=== PATIENT | female | born 1995 | race Caucasian/White ===

== ENCOUNTER 2021-01-04 09:40 | Day surgery (SDC) | payer OTHER ==
[~2021-01-04] VITALS: Ht 172.7 cm; Wt 90.9 kg
[2021-01-04] MEDS ORDERED: KYLE19.5 IU (09:45)
--- OUTSIDE RECORDS SUMMARY | 2021-01-04 11:28 | CCD | Continuity of Care Document ---
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 Name Role Phone [facility] AUTM [phone] Problems Description No Information Available Social History Type Date Description Comments Sex Unknown Allergies and adverse reactions Description No Information Available Medications Description No Information Available Immunizations Description No Information Available Vital Signs Description No Information Available Results Description No Information Available Procedures Description No Information Available Medical Devices Description No Information Available Encounters Description No Information Available Assessments Date Code Description Provider 01/03/2021 Z20.828 Contact with and (goodson spected) exposure to other viral communicable diseases SHANNAN Blake Plan of Treatment No Information Available Functional Status Description No Information Available Mental Status Description No Information Available Referrals Refer to Reason for Referral Status Appt Date Wallace Link PA Created [facility] [address] [place] [id number] [phone]
--- OUTSIDE RECORDS SUMMARY | 2021-01-04 11:28 | CCD ---
Author Author [facility] Organization [facility] Address Unknown Phone Unavailable Support Name Relationship Address Phone CYSSFTDRUM Next Of Kin [address] [place] [address] BRITTANY DAVALOS Next Of Kin [address] [place] [address] Re-disclosure Warning The records that you are about to access may contain information from federally-assisted alcohol or drug abuse programs. If such information is present, then the following federally mandated warning applies: This information has been disclosed to you from records protected by federal confidentiality rules (42 CFR part 2). The federal rules prohibit you from making any further disclosure of this information unless further disclosure is expressly permitted by the written consent of the person to whom it pertains or as otherwise permitted by 42 CFR part 2. A general authorization for the release of medical or other information is NOT sufficient for this purpose. The Federal rules restrict any use of the information to criminally investigate or prosecute any alcohol or drug abuse patient.The records that you are about to access may contain highly sensitive health information, the redisclosure of which is protected by Article 27-F of the [place] Public Health law. If you continue you may have access to information: Regarding HIV / AIDS; Provided by facilities licensed or operated by the [facility] Office of Mental Health; or Provided by the [facility] Office for People With Developmental Disabilities. If such information is present, then the following [facility] mandated warning applies: This information has been disclosed to you from confidential records which are protected by state law. State law prohibits you from making any further disclosure of this information without the specific written consent of the person to whom it pertains, or as otherwise permitted by law. Any unauthorized further disclosure in violation of state law may result in a fine or skilled nursing sentence or both. A general authorization for the release of medical or other information is NOT sufficient authorization for further disc losure. Medications No Information Insurance Providers Payer name Policy type / Coverage type Policy ID Covered libertarian ID Covered libertarian's relationship to brady Policy Brady Plan Information [facility] [id number] [facility] [id number] Problems, Conditions, and Diagnoses No Information Surgeries/Procedures No Information Results No Information Social History No Information
--- OUTSIDE RECORDS SUMMARY | 2021-01-04 11:28 | CCD | Continuity of Care Document ---
Author [facility] Organization Unknown Address [address] [place] [address] Phone [phone] Care Team Providers Care Operations Support Professionals Name Role Phone [facility] AUTM [phone] Problems Description No Information Available Social History Type Date Description Comments Sex Unknown Allergies and adverse reactions Description No Information Available Medications Description No Information Available Immunizations Description No Information Available Vital Signs Description No Information Available Results Description No Information Available Procedures Description No Information Available Medical Devices Description No Information Available Encounters Description No Information Available Assessments Description No Information Available Plan of Treatment No Information Available Functional Status Description No Information Available Mental Status Description No Information Available Referrals Refer to Reason for Referral Status Appt Date Wallace Link PA Created [facility] [address] [address] [phone]
[2021-01-04] MEDS ORDERED: NS 1,000 ML IV ONE (11:35)
[2021-01-04] MEDS ORDERED: MORPHINE 4 MG/ML 1ML VIAL/SYRINGE (J2270) IV ONE (12:20)
[2021-01-04] MEDS ORDERED: ONDANSETRON 4MG/2ML VIAL IV ONE (12:20)
[2021-01-04 12:26] LABS: BASO # 0.1 10^3/uL (0.0-0.2); BASO % 0.4 % (0.0-1.0); EOS % 0.4 % (0.0-3.0); HEMATOCRIT 43.9 % (36.0-47.0); HEMOGLOBIN 14.5 g/dl (12.0-15.5); LYMPH # 1.2 10^3/uL (1.5-5.0); LYMPH % 10.9 % (24.0-44.0); MEAN CORPUSCULAR HEMOGLOBIN 28.8 pg (27.0-33.0); MEAN CORPUSCULAR VOLUME 87.1 fl (80.0-96.0); MONO # 0.5 10^3/uL (0.0-0.8); MONO % 4.3 % (2.0-8.0); NEUTROPHILS # 9.4 10^3/uL (1.5-8.5); NEUTROPHILS % 83.2 % (36.0-66.0); PLATELET COUNT, AUTOMATED 298 10^3/uL (150-450); RED BLOOD COUNT 5.04 10^6/uL (4.00-5.40); WHITE BLOOD COUNT 11.2 10^3/uL (4.0-10.0)
[2021-01-04] MEDS ORDERED: ISOVUE-370 76% 100ML VIAL As Ordered ONE (12:39)
[2021-01-04 12:52] LABS: ALBUMIN 4.2 GM/DL (3.2-5.2); ALT/SGPT 32 U/L (12-78); BILIRUBIN,DIRECT < 0.1 MG/DL (0.0-0.2); BILIRUBIN,TOTAL 0.4 MG/DL (0.2-1.0); BLOOD UREA NITROGEN 17 MG/DL (7-18); CALCIUM LEVEL 9.6 MG/DL (8.5-10.1); CARBON DIOXIDE LEVEL 27 MEQ/L (21-32); CHLORIDE LEVEL 105 MEQ/L (98-107); CREATININE FOR GFR 0.79 MG/DL (0.55-1.30); GLOMERULAR FILTRATION RATE > 60.0 (>60); GLUCOSE, FASTING 104 MG/DL (70-100); LIPASE 75 U/L (73-393); POTASSIUM SERUM 4.7 MEQ/L (3.5-5.1); SODIUM LEVEL 135 MEQ/L (136-145); TOTAL PROTEIN 8.9 GM/DL (6.4-8.2)
[2021-01-04 13:21] LABS: RSV AMPLIFICATION NEGATIVE (NEGATIVE)
--- NOTE | 2021-01-04 14:05 | REP ---
INDICATION: periumbilical pain, RLQ and LLQ TTP, r/o appendicitis COMPARISON: None. TECHNIQUE: CT Scan of the abdomen and pelvis was performed with intravenous administration of 100 cc of Isovue 370, without oral contrast. Sagittal and coronal reconstruction images are performed. FINDINGS: Lung bases: There is a small hiatal hernia. Liver: Normal Gallbladder: Unremarkable. Spleen: Normal. Adrenals: Normal. Pancreas: Normal. Kidneys: Normal. Small and large bowel: Unremarkable. Free fluid: None. Abdominal aorta: No aneurysm or dissection. Adenopathy: None. Appendix: The appendix is mildly dilated measuring up to 8-9 mm in diameter. There is subtle Periappendiceal fat stranding. The findings are compatible with mild/early appendicitis.. Osseous structures: Unremarkable. Pelvis: No mass. There is an IUD in the uterus. IMPRESSION: The appendix is mildly dilated measuring up to 8-9 mm in diameter. There is subtle Periappendiceal fat stranding. The findings are compatible with mild/early appendicitis.. <Electronically signed by Wally Prado > 01/04/21 0977
[2021-01-04] MEDS ORDERED: PIPERACILLIN/TAZOBACTAM SOD 3.375 GM in D5W MINI-BAG PLUS 50 ML IV ONE (14:35)
[2021-01-04] MEDS ORDERED: LIDOCAINE 1% SDV 30ML VIAL As Ordered ONE (14:59)
[2021-01-04] MEDS ORDERED: BUPIVACAINE HCL 0.25% 30ML VIAL As Ordered ONE (14:59)
[2021-01-04] MEDS ORDERED: ONDANSETRON 4MG/2ML VIAL As Ordered ONE (15:20)
[2021-01-04] MEDS ORDERED: MIDAZOLAM INJ 2MG/2ML VIAL (J2250 PER 1MG) As Ordered ONE (15:20)
[2021-01-04] MEDS ORDERED: METOCLOPRAMIDE INJ 10MG/2ML VIAL (J2765 PER 1) As Ordered ONE (15:20)
[2021-01-04] MEDS ORDERED: fentaNYL 100 MCG/2 ML INJECTION (J3010) As Ordered ONE (15:20)
[2021-01-04] MEDS ORDERED: LIDOCAINE 2% 100MG/5ML SDV (FOR ANES.) As Ordered ONE (15:20)
[2021-01-04] MEDS ORDERED: ROCURONIUM BROMIDE 50 MG/5 ML VIAL As Ordered ONE (15:20)
[2021-01-04] MEDS ORDERED: propofoL 200 MG/20 ML VIAL As Ordered ONE (15:20)
[2021-01-04] MEDS ORDERED: OXYC1TAB23 PO (16:45)
[2021-01-04] MEDS ORDERED: SUGAMMADEX SODIUM 500 MG/5 ML VIAL (BRIDION) As Ordered ONE (16:47)
[2021-01-04] MEDS ORDERED: KETOROLAC 60MG 2ML VIAL As Ordered ONE (16:47)
[2021-01-04] MEDS ORDERED: dexameTHASONE 4 MG/ML 1ML VIAL (J1100 PER 1MG) As Ordered ONE (16:47)
[2021-01-04] MEDS ORDERED: ONDANSETRON 4MG/2ML VIAL IV PRN (17:10)
[2021-01-04] MEDS ORDERED: fentaNYL 100 MCG/2 ML INJECTION (J3010) IV PRN (17:10)
[2021-01-04] MEDS ORDERED: LR 1,000 ML IV SCH (17:10)
[2021-01-04] MEDS ORDERED: KETOROLAC 30 MG/ML 1ML VIAL IV PRN (17:10)
[2021-01-04] MEDS ORDERED: oxyCODONE 5MG TAB PO PRN (17:10)
[2021-01-04] MEDS ORDERED: PERCOCET 5MG/325MG TAB PO PRN (17:15)
[2021-01-04 18:10] VITALS: BP 135/60
--- NOTE | 2021-01-05 07:35 | ROOPDOC ---
[facility] Report Of Operation Report of Operation DATE OF PROCEDURE: 01/04/21 PREPROCEDURE DIAGNOSES: Acute appendicitis. POSTPROCEDURE DIAGNOSES: Acute nonperforated appendicitis. PROCEDURE PERFORMED: Laparoscopic appendectomy. SURGEON: Emmett Landaverde MD ANESTHESIA: General endotracheal anesthesia. ESTIMATED BLOOD LOSS: Approximately 10 mL. COMPLICATIONS: None. REMARKS: Healthy 25-year-old female with 1 day history of abdominal pain, nausea. She was evaluated in the emergency room is found to have mild leukocytosis, evidence for early acute appendicitis on CT without perforation or abscess. She is afebrile, no signs of severe inflammatory response, tender on the right lower quadrant area on examination. FINDINGS: Distended appendix throughout its course down to the base but very minimal inflammation if any. Small amount of serous fluid in the pelvis. SPECIMENS REMOVED: Appendix DESCRIPTION OF PROCEDURE: . Patient has been given a dose of Zosyn perioperatively.Patient was brought to the operating room, placed supine on the table. Sequential compression device placed for DVT prophylaxis. General endotracheal anesthesia started. The abdomen prepped and draped in usual sterile fashion. We paused for a surgical timeout using both pre-incision safety checklist to verify correct patient, procedure site and additional clinical information prior to beginning the procedure I tried to enter the abdomen over the left subcostal line but was not successful in doing so. The measured pressures were just fluctuating back and forth. I was able to successfully enter through the left side of the umbilicus. Veress needle inserted on a controlled fashion. Intra-abdominal placement confirmed with saline drop technique. CO2 insufflation started to a pressure of 15 mmHg. Using the same incision a 5 mm port was placed under direct vision of laparoscope. Insertion site was inspected for injury and none was found. I evaluated also the site of the left upper quadrant insertion it turned out that I was at the left margin of the falciform ligament but was not through the peritoneum. This caused some insufflation of the peritoneum over the left side, falciform ligament and umbilical ligaments. She was placed on a Trendelenburg position the right side tilted to allow for better visualization of the appendix. Two working ports were placed at the suprapubic area(8 mm) and left lower quadrant area(5 mm) under direct vision Operative findings: Mild distention of the small bowel. The cecum was likewise mildly distended. No purulent fluid noted. The appendix is located it has a long tortuous course, distended throughout its course slightly purplish in appearance, mild ischemia. No gross perforation or necrosis. The base appears healthy and pink. The mesentery is mildly thickened. A small amount of serous fluid is noted in the pelvis.. The appendix was grasped to pull the base of the appendix into view. The mesoappendix was divided using Harmonic scalpel down to the base. Two PDS Endoloops were placed to ligate the appendix at its base then divided with a Harmonic Scalpel the stump cauterized. Stump appears healthy. Appendix was then delivered into an Endo Catch bag through the 8 mm port site. . After re-insufflation the surgical site was inspected for hemostasis, the visualized fluid collections irrigated and suctioned off until clear return. Surrounding areas of the abdomen and inspected for fluid collections or signs of injury. The abdomen was deflated. All ports removed. The suprapubic fascial defect repaired with 0 Vicryl in a mattress fashion. All skin incisions closed with 4-0 Monocryl in a subcuticular fashion. Steri-Strips and gauze dressing used for wound coverage. Patient was promptly awake and extubated and brought to recovery room stable. All counts of sponges and instruments verified to be correct. EMMETT LANDAVERDE MD Jan 05, 2021 07:35
--- OUTSIDE RECORDS SUMMARY | 2021-01-12 13:16 | CCD ---
Author Author [facility] Organization [facility] Address Unknown Phone Unavailable Support Name Relationship Address Phone CYSSFTDRUM Next Of Kin [address] [place] [address] BRITTANY DAVALOS Next Of Kin [address], [place] [address] BRITTANY DAVALOS ECON [address], [place] [address] Unavailable Re-disclosure Warning The records that you are [...] is protected by Article 27-F of the [facility] Public Health law. If you continue you may have access to information: Regarding HIV / AIDS; Provided by facilities licensed or operated by the [facility] Office of Mental Health; or Provided by the [facility] Office for People With Developmental Disabilities. If such information is present, then the following [facility] mandated warning applies: This information has been [...] law may result in a fine or intermediate sentence or both. A general authorization for the release of medical or other information is NOT sufficient authorization for further disc losure. Medications No Information Insurance Providers Payer name Policy type / Coverage type Policy ID Covered libertarian ID Covered libertarian's relationship to brady Policy Brady Plan Information [facility] [id number] Problems, Conditions, and Diagnoses No Information Surgeries/Procedures No Information Results ID Date Data Source [id number] 01/04/2021 12:09:00 PM EDT [facility] Name Value Range Interpretation Code Description Data Tram rce(s) Supporting Document(s) SARS coronavirus 2 RNA [Presence] in Res piratory specimen by AMANDA with probe detection NEGATIVE [facility] This lab was ordered by [facility] a nd reported by [facility]. ID Date Data Source [id number] 01/03/2021 12:00:00 AM EDT [facility] Name Value Range Interpretation Code Description Data Tram rce(s) Supporting Document(s) SARS-[facility]2 [facility]igen [facility] by [facility] and reported by [facility]. Procedure Social History No Information
== END 2021-01-04 18:10 | disposition home or self-care (01) ==
LOC: M ED 09:40 → M SDC 09:41 → M ED 15:25 → M SDC 18:10
PROVIDERS: ATTEND Surgery
DX: K35.80 Unspecified acute appendicitis (principal); R05.9 Cough, unspecified; J02.9 Acute pharyngitis, unspecified; R11.0 Nausea; Z97.5 Presence of (intrauterine) contraceptive device; Z79.899 Other long term (current) drug therapy
CPT/HCPCS: 44970; 74177; 80047; 80048; 80076; 81001; 83690; 84702; 85025; 87086; 87631; 87880; 88304; 96361; 96365; 96375; 99283; J1100; J1885; J2250; J2270; J2405; J2543; J2765; J3010; Q9967